=== PATIENT | male | born 2000 | race Caucasian/White ===

== ENCOUNTER 2023-05-16 12:41 | Emergency (ER) | payer BC, SELFPAY ==
[2023-05-16 12:53] VITALS: BP 150/78
[2023-05-16 13:15] VITALS: BMI 30.9
--- NOTE | 2023-05-16 13:52 | ED.SKININJ ---
HPI-Injury
<Erma Fletcher PA-C - Last Filed: 05/17/23 13:58>
General
Chief Complaint: Bite
Source: patient
Exam Limitations: none
Time Seen by Provider: 05/16/23 13:05
Nursing documentation reviewed up to this point in time: agreed with
Travel History
Have you had any contact with someone who has COVID-19?: No
Do you have any symptoms of coronavirus? Fever > 100 degrees, chills, cough, shortness of breath, sore throat, loss of taste or smell, muscle aches, or headache?: No
History of Present Illness-Injury
Initial Injury comments:
Patient is a 22-year-old male with no significant past medical history presenting for evaluation of monkey bite to his right hand. Patient was in the [facility] [place] on spring last week when a local man was walking along the beach with his
'pet 'monkey taking pictures with those negative resort. Patient's states that while taking pictures of the monkey bit him on the right lateral dorsal hand. He did clean the wound after the bite occurred. This occurred 2 days ago. He returned to
the [place] yesterday and decided to follow-up with his primary care provider but given them a call. They recommend that he be seen in the emergency department for prophylactic treatment for rabies.
He denies any significant pain, swelling, redness, drainage. He denies any fevers, chills, vomiting.
He has never had any prior treatment for rabies
Phy Exam
<Erma Fletcher PA-C - Last Filed: 05/17/23 13:58>
Physical Exam
Physical Exam:
General: Well appearing and non-toxic
Vitals: Hypertensive, otherwise vital signs stable; afebrile
HEENT: Atraumatic, normocephalic; pupils equal round reactive to light bilaterally, protecting airway
Neck: appears supple
CV: Regular rate and rhythm, heart sounds normal, no evidence of cyanosis
Resp: No evidence of respiratory distress, lungs clear
Abd: Non-distended
Extremities: No deformities
Neuro: alert and oriented x 3; grossly intact
Psych: Normal affect
Skin: Very small bite mona <1cm at base of 1st/2nd digits of right hand without any surrounding erythema or swelling
Course
<Erma Fletcher PA-C - Last Filed: 05/17/23 13:58>
Orders/Labs/Results
Orders:
Orders
05/16/23 14:09
Tetanus/Diphth/Acelpertussis [Adacel] 0.5 ml IM .ONCE ONE
05/16/23 14:16
Rabies Immune Globulin/Pf [HyperRAB] 1,842 unit IM NOW STA
05/16/23 14:30
Rabies Vaccine (Pcec)/Pf [Rabavert Rabies Vacc W-Diluent] 2.5 unit IM .ONCE ONE
05/16/23 14:39
INFECTIOUS DISEASE CONSULT Urgent
Consulting Provider: Mau Leal
Was physician already notified: Yes
05/16/23 16:19
Amoxicillin 875 mg/Clav 125 mg [Augmentin 875 mg/125 mg] 1 tablet PO NOW STA
Valacyclovir HCl [Valtrex] 1,000 mg PO NOW STA
Vital Signs
Initial and Last Documented VS:
Initial Vital Signs
Temp Pulse Resp BP Pulse Ox
98.4 F 87 18 150/78 97
05/16/23 12:53 05/16/23 12:53 05/16/23 12:53 05/16/23 12:53 05/16/23 12:53
Last Documented Vital Signs
Temp Pulse Resp BP Pulse Ox
98.4 F 87 18 150/78 97
05/16/23 12:53 05/16/23 12:53 05/16/23 12:53 05/16/23 12:53 05/16/23 12:53
<DO Gaye Stoddard Last Filed: 05/16/23 15:57>
Orders/Labs/Results
Orders:
Orders
05/16/23 14:09
Tetanus/Diphth/Acelpertussis [Adacel] 0.5 ml IM .ONCE ONE
05/16/23 14:16
Rabies Immune Globulin/Pf [HyperRAB] 1,842 unit IM NOW STA
05/16/23 14:30
Rabies Vaccine (Pcec)/Pf [Rabavert Rabies Vacc W-Diluent] 2.5 unit IM .ONCE ONE
05/16/23 14:39
INFECTIOUS DISEASE CONSULT Urgent
Consulting Provider: Mau Leal
Was physician already notified: Yes
05/16/23 16:19
Amoxicillin 875 mg/Clav 125 mg [Augmentin 875 mg/125 mg] 1 tablet PO NOW STA
Valacyclovir HCl [Valtrex] 1,000 mg PO NOW STA
Vital Signs
Initial and Last Documented VS:
Initial Vital Signs
Temp Pulse Resp BP Pulse Ox
98.4 F 87 18 150/78 97
05/16/23 12:53 05/16/23 12:53 05/16/23 12:53 05/16/23 12:53 05/16/23 12:53
Last Documented Vital Signs
Temp Pulse Resp BP Pulse Ox
98.4 F 87 18 150/78 97
05/16/23 12:53 05/16/23 12:53 05/16/23 12:53 05/16/23 12:53 05/16/23 12:53
<Erma Fletcher PA-C - Last Filed: 05/17/23 13:58>
MDM/Problems Addressed
Differential Diagnosis Includes:
animal bite, cellulitis, puncture wound
MDM/Problems Addressed:
The patient is a 22 year old male presenting for evaluation of healing monkey bite sustained 2 days ago while vacationing in [place]. The monkey was supposedly a pet of a local [place] man walking on the [place]. Spoke to his PCP once he
[place] and was told to go to ER for evaluation and rabies vaccination. Denies any pain, fever, chills. Patient has stable vital sings, afebrile. There is a very small <1cm bite mona on right dorsal hand without any signs of infection.
Given geographic location and inability to monitor animal - will proceed with rabies immunoglobin and vaccination. Will update tdap
Will consult ID for evaluation and input regarding appropriate prophylaxis given risk of viral infections spread from monkey.
ID in to see patient. Lengthy discussion with Dr. Leal. He agrees with tdap and rabies series. Due to potential infection with Herpes B virus - recommends prophylaxis with antivrial. Also recommends prophylaxis with augmentin.
Initial doses of augmnetin and valtrex given in emergency department. Patient stable for discharge with very close return precautions, repeat rabies vaccinations, and antiviral/antiobiotic. Lengthy discussion with patient and mom regardign rabies
vaccination series and return precautions. They express understanding and comfortable with plan.
Chronic conditions affecting care:
N/A
Acute Exacerbation and/or Progression of Chronic Illness:
N/A
<Erma Fletcher PA-C - Last Filed: 05/17/23 13:58>
*Pulse Oximetry
Patient hypoxic: no
*Craps Dealer Interpretation
Rate: Craps Dealer- N/A
*Critical Care Note
Total Time (30-74mins, 75-104mins- exclusive of procedures): Not Applicable
<Erma Fletcher PA-C - Last Filed: 05/17/23 13:58>
Patient Management
Discussion with other providers: Cognos (Infectious disease)
ED Attending Note
<Erma Fletcher PA-C - Last Filed: 05/17/23 13:58>
-
Portions of this chart may have been created with voice recognition software.� Occasional wrong word or��sound alike� substitutions may have occurred due to the inherent limitations of voice recognition software.
<Dennis Roberts, DO - Last Filed: 05/16/23 15:57>
ED Attending Note
Patient seen and examined by attending physician: Yes
I performed the substantive portion of visit, reviewed & personally made and approve the management plan that is documented in note by myself or CYNTHIA.: Yes
ED Attending Note:
Seen with PA examined independently reviewed with infectious disease I defer to their expertise for the management of a monkey bite
Discharge Plan
Departure
Patient Disposition: Home (Routine Discharge)
Date of Disposition: 05/16/23
Time of Disposition: 16:25
Patient with high blood pressure during this ER visit?: Yes
Condition: Good
Covid-19: Not Applicable
Discharge Problem:
Animal bite
Instructions: Animal Bites (DC), Rabies Immune Globulin (Human), Rabies Vaccine, Rabies
Prescriptions:
New
valacyclovir 1 gram tablet
1,000 mg PO Q8H 14 Days Qty: 42 0RF
Imovax Rabies Vaccine (PF) 2.5 unit recon soln
1 ml IM ONCE Qty: 3 0RF
Rx Instructions:
1mL on 05/18, 05/22, 05/30
amoxicillin-pot clavulanate 875-125 mg tablet
1 tab PO BID 5 Days Qty: 10 0RF
No Action
epinephrine [Auvi-Q] 0.3 MG/0.3 ML auto-injector
0.3 mg IJ ONCE Qty: 1 0RF
prednisone 20 MG tablet
40 mg PO DAILY Qty: 8 0RF
Rx Instructions:
40mg PO daily x 4 days
Referrals:
Tomas Casper MD [Family Provider] -
Stand Alone Forms: Rabies Vaccine Post Exp Dosing
Activity Restrictions/Additional Instructions:
- Return to the emergency department with any high fevers, signs of infection, vesicles or rashes surrounding the wound, flulike symptoms, intractable vomiting, severe headache, worsening current symptoms, or any other concerns
-Your prescriptions have been sent to your pharmacy. You should take the Augmentin twice a day for 5 days. You should take the valacyclovir 3 times a day for the next 14 days
-Keep wound clean and dry. Wash gently daily with soap and water.
-As discussed you will need to receive the rabies vaccine in 3 days, 7 days, and 14 days. You should visit the infusion clinic for this vaccine on weekdays, and in emergency department on weekends for vaccination.
-Follow-up with your primary care provider for further evaluation of management
Interventions
Interventions:
*Risk Screen - Suicide Last Done: 05/16/23 13:15
*General Assessment Last Done: 05/16/23 13:15
*Neglect/Abuse Screening Last Done: 05/16/23 13:15
ED- Fall Risk Assessment Last Done: 05/16/23 16:18
*ED COVID-19 Vaccine History Last Done: 05/16/23 12:53
*Nursing Disposition Last Done: 05/16/23 16:45
ED-Skin Assessment Last Done: 05/16/23 13:16
Discharge Date and Time
Discharge Date/Time: 05/16/23 16:45
[2023-05-16] MEDS: RABAVERT RABIES VACC W-DILUENT 2.5 UNIT IM (15:21)
[2023-05-16] MEDS: HyperRAB 1842 UNIT IM (15:21)
[2023-05-16] MEDS: ADACEL 0.5 ML IM (15:24)
--- NOTE | 2023-05-16 15:28 | CON.ID ---
Consultation
-
Date/Time Consultation Requested: 05/16/2023 1439
Date/Time Consultation Performed: 05/16/2023 1450
Requesting Provider: Erma Avilez PA-C
Performing Provider: Dr. Leal
Reason for Consultation: Monkey bite to the right hand
Chief Complaint / Past History
History of Present Illness
Jayro Samaniego is a 22-year-old man being evaluated regarding a recent monkey bite. History is obtained from chart review, patient interview and history obtained from the patient's mother who was at the bedside.
The patient recently was vacationing on spring in the [facility]. While he was there he had the opportunity to take photos with a local man who had a pet monkey. While interacting with the monkey, the monkey bit him on his right hand
at the base of the first and second fingers. The bite was not noted to be deep, but there was some blood noted on the hand. Afterwards, the patient washed his hand. He returned from the [facility] and has presented to the hospital ER for
further evaluation and treatment.
The patient denies any spreading erythema of the area. He otherwise has felt fine, and without signs or symptoms of infection. Specifically, no fevers or chills. No spreading erythema, purulence, drainage from the bite area.
Past History
Past Medical History: None
Additional Past Surgical History:
Left labrum surgery
Pilonidal cyst removal
Allergy History:
peanut Allergy (Severe, Verified 05/16/23 13:04)
Anaphylaxis
Cephalosporins Allergy (Unknown, Verified 05/16/23 13:04)
Rash
Medications Reviewed: Yes
Current Antibiotics:
None
Social History
Tobacco: Smoker (occasional)
Alcohol: Occasional
Drug: None
Personal: Single
Living: With Family
Employment: Other (Student)
Family History
Family History: Not Pertinent
Review of Systems
Vital Signs
Temp Pulse Resp BP Pulse Ox
98.4 F 87 18 150/78 97
05/16/23 12:53 05/16/23 12:53 05/16/23 12:53 05/16/23 12:53 05/16/23 12:53
Physical Exam
Physical Exam
Constitutional: No Acute Distress, Well Developed, Comfortable and Non-toxic; Negative Acutely Ill or Chronically Ill
Head: Normocephalic
Eyes: Pupils Equal, Pupils Round, No Conjunctival Hemorrhage and Sclera Anicteric
Oral: No Thrush and No Ulcers
Cardiovascular: S1/S2; Negative S3/S4 or Murmur
Pulmonary: Non Labored; Negative Wheezes, Rales or Rhonchi
Gastrointestinal: Soft, Non Tender and Non Distended
Wound: Other (Small (<1cm) superficial wound at base of 1st / 2nd digits of right hand. No spreading erythema. )
Neurological: Awake and Alert
Psychological: Calm
Assessment / Plan
Monkey bite while vacationing in the [facility] from a pet monkey
Recommendations:
Current guidelines were reviewed regarding prophylaxis for monkey bites.
Would recommend course of antibiotics to treat for potential wound infection from monkey oral kristyn (Augmentin).
Agree with initiation of rabies vaccine series, as the animal cannot be observed at this time.
Additionally, discussed with patient regarding the risk of herpes B virus. At this time there is no way to know whether the monkey is a carrier of herpes B, but current recommendations would be to prophylax with Valtrex 1 g p.o. every 8 hours for
14 days.
Patient should watch for any signs or symptoms of infection, including the development of fever, spreading erythema, vesicles at the site of the bite, etc.
Care Review
Plan reviewed with: Other Provider (PA)
[2023-05-16] MEDS: VALTREX 1000 MG PO (16:26)
[2023-05-16] MEDS: AUGMENTIN 875 MG/125 MG 1 TABLET PO (16:26)
== END 2023-05-16 16:45 | disposition home or self-care (01) ==
LOC: EMR 12:41
PROVIDERS: CONSULT PHYSICIAN Internal Medicine Infectious Disease; EMERGENCY PHYSICIAN Emergency Medicine; FAMILY PHYSICIAN Family Medicine
DX: S60.571A Other superficial bite of hand of right hand, initial encounter (principal); Z23 Encounter for immunization; Z20.3 Contact with and (suspected) exposure to rabies; W55.81XA Bitten by other mammals, initial encounter; Y93.89 Activity, other specified; Y92.89 Other specified places as the place of occurrence of the external cause; Z20.9 Contact with and (suspected) exposure to unspecified communicable disease; R03.0 Elevated blood-pressure reading, without diagnosis of hypertension; F17.200 Nicotine dependence, unspecified, uncomplicated; Z88.3 Allergy status to other anti-infective agents; Z91.010 Allergy to peanuts; J45.909 Unspecified asthma, uncomplicated; F41.9 Anxiety disorder, unspecified
CPT/HCPCS: 99284; 90471; 96372; 90375; 90675; 90715

== ENCOUNTER 2023-05-29 14:32 | Outpatient (RCR) | payer BC, SELFPAY ==
[2023-05-19 08:48] VITALS: BP 155/86
[2023-05-19] MEDS: RABAVERT RABIES VACC W-DILUENT 2.5 UNIT IM (08:58)
[2023-05-22 14:50] VITALS: BP 145/67
[2023-05-22] MEDS: RABAVERT RABIES VACC W-DILUENT 2.5 UNIT IM (14:57)
[2023-05-29 14:48] VITALS: BP 131/56
[2023-05-29] MEDS: RABAVERT RABIES VACC W-DILUENT 2.5 UNIT IM (14:56)
== END 2023-06-01 08:36 | disposition home or self-care (01) ==
LOC: OID 14:32
PROVIDERS: ATTENDING PHYSICIAN Emergency Medicine; FAMILY PHYSICIAN Family Medicine
DX: Z20.3 Contact with and (suspected) exposure to rabies (principal); Z23 Encounter for immunization
CPT/HCPCS: 90471; 90675